=== PATIENT | male | born 1950 | race Caucasian/White ===

== ENCOUNTER 2016-11-22 14:22 | Inpatient (IN) | payer OTHER, MEDICARE ==
[~2016-11-22] VITALS: Ht 167.6 cm; Wt 74.5 kg
[2016-11-22 14:55] LABS: BASOPHIL 0.2 % (0-2); EOSINOPHIL 0.2 % (0-7); HCT 40.3 % (42.0-52.0); HGB 14.1 g/dl (13.2-18.0); LYMPHOCYTE 3.4 % (15-48); MCH 33.3 pg (25.0-31.0); MONOCYTE 6.7 % (0-12); MPV 9.2 fL (6.0-9.5); NEUTROPHIL 89.5 % (41-80); PLT 239 K/uL (150-400); RBC 4.24 M/uL (4.70-6.00); RDW 13.7 % (11.5-14.0); WBC 17.9 K/uL (4.0-10.5)
[2016-11-22 14:59] LABS: INR 1.07 (0.9-1.2); PROTHROMBIN TIME 13.5 SECONDS (11.7-14.0); PTT 33.7 SECONDS (23.2-31.4)
[2016-11-22 15:00] LABS: D-DIMER 1.69 ug/mLFEU (0.00-0.41)
[2016-11-22 15:08] LABS: MYOGLOBIN 291 ng/mL (26-65); TROPONIN T < 0.010 ng/mL
[2016-11-22 15:09] LABS: ALBUMIN 4.1 g/dL (3.4-4.8); BILIRUBIN - TOTAL 0.7 mg/dL (0.1-1.0); CREATININE 0.9 mg/dL (0.7-1.2); GLOBULIN (CALCULATION) 3.4 g/dL (2.2-4.2); MAGNESIUM 1.94 mg/dL (1.40-2.10); TOTAL PROTEIN 7.5 g/dL (6.4-8.3)
[2016-11-22 15:12] LABS: PRO-BNP 361 pg/mL (0-125)
[2016-11-22 15:14] LABS: CKMB 10.04 ng/mL (0.97-4.94)
[2016-11-22 20:55] LABS: TROPONIN T < 0.010 ng/mL
[2016-11-22 20:59] LABS: CKMB 12.65 ng/mL (0.97-4.94)
[2016-11-22 23:42] LABS: BILIRUBIN NEGATIVE (NEGATIVE); BLOOD 1+ Ery/uL (NEGATIVE); CLARITY CLEAR (CLEAR); COLOR YELLOW (YELLOW); GLUCOSE (U) NORMAL (NORMAL); KETONE (U) NEGATIVE (NEGATIVE); LEUKOCYTES NEGATIVE Leu/uL (NEGATIVE); NITRITE NEGATIVE (NEGATIVE); PROTEIN NEGATIVE (NEGATIVE); SPECIFIC GRAVITY <=1.005 (1.001-1.030); UROBILINOGEN 0.2 mg/dL (0.2-1.0); pH 5.5 (5.0-9.0)
[2016-11-22 23:52] LABS: URINARY WBC RARE
[2016-11-23 04:21] LABS: HCT 35.7 % (42.0-52.0); HGB 12.2 g/dl (13.2-18.0); MCH 33.2 pg (25.0-31.0); MCHC 34.2 g/dL (32.0-36.0); MCV 97.3 fL (78.0-100.0); MPV 9.1 fL (6.0-9.5); RBC 3.67 M/uL (4.70-6.00); RDW 14.1 % (11.5-14.0); WBC 12.8 K/uL (4.0-10.5)
[2016-11-23 04:40] LABS: CREATININE 0.8 mg/dL (0.7-1.2); POTASSIUM 4.6 mmol/L (3.5-5.1)
[2016-11-24 04:03] LABS: HCT 34.5 % (42.0-52.0); HGB 11.7 g/dl (13.2-18.0); MCH 33.1 pg (25.0-31.0); MCHC 33.9 g/dL (32.0-36.0); MCV 97.7 fL (78.0-100.0); MPV 8.7 fL (6.0-9.5); RBC 3.53 M/uL (4.70-6.00); RDW 14.2 % (11.5-14.0); WBC 13.1 K/uL (4.0-10.5)
[2016-11-24 04:30] LABS: CREATININE 0.8 mg/dL (0.7-1.2)
--- NOTE | 2016-11-24 11:49 | NUR ---
REPORT CALLED TO JOSE VERA AT THIS TIME.
[2016-11-26 04:56] LABS: HCT 36.3 % (42.0-52.0); HGB 12.5 g/dl (13.2-18.0); MCH 33.7 pg (25.0-31.0); MCHC 34.4 g/dL (32.0-36.0); MCV 97.8 fL (78.0-100.0); MPV 8.5 fL (6.0-9.5); RBC 3.71 M/uL (4.70-6.00); WBC 8.6 K/uL (4.0-10.5)
[2016-11-26 05:18] LABS: CREATININE 0.7 mg/dL (0.7-1.2); POTASSIUM 4.4 mmol/L (3.5-5.1)
--- NOTE | 2016-11-27 01:05 | NUR ---
FOLLOW UP BLOOD PRESSURE 165/72
[2016-11-27 05:04] LABS: HCT 37.9 % (42.0-52.0); HGB 13.1 g/dl (13.2-18.0); MCH 33.2 pg (25.0-31.0); MCHC 34.6 g/dL (32.0-36.0); MCV 96.2 fL (78.0-100.0); MPV 8.6 fL (6.0-9.5); RBC 3.94 M/uL (4.70-6.00); RDW 13.6 % (11.5-14.0); WBC 10.6 K/uL (4.0-10.5)
[2016-11-27 05:23] LABS: CREATININE 0.7 mg/dL (0.7-1.2)
[2016-11-28 05:47] LABS: HCT 39.6 % (42.0-52.0); HGB 13.6 g/dl (13.2-18.0); MCH 32.9 pg (25.0-31.0); MCHC 34.3 g/dL (32.0-36.0); MCV 95.7 fL (78.0-100.0); MPV 8.7 fL (6.0-9.5); RBC 4.14 M/uL (4.70-6.00); RDW 13.6 % (11.5-14.0); WBC 11.4 K/uL (4.0-10.5)
[2016-11-28 06:19] LABS: CREATININE 0.7 mg/dL (0.7-1.2); POTASSIUM 3.7 mmol/L (3.5-5.1)
[2016-11-29 05:41] LABS: HCT 40.9 % (42.0-52.0); HGB 14.1 g/dl (13.2-18.0); MCHC 34.5 g/dL (32.0-36.0); MCV 95.8 fL (78.0-100.0); MPV 8.7 fL (6.0-9.5); RBC 4.27 M/uL (4.70-6.00); RDW 13.7 % (11.5-14.0); WBC 10.9 K/uL (4.0-10.5)
[2016-11-29 06:01] LABS: CREATININE 0.7 mg/dL (0.7-1.2); POTASSIUM 3.5 mmol/L (3.5-5.1)
[2016-11-30] MEDS ORDERED: DUONEB 2.5-0.5M1 AMP NEB (14:41)
[2016-11-30] MEDS ORDERED: CERTAGEN1 EACH PO (14:42)
[2016-11-30] MEDS ORDERED: NEXIUM40 MG PO (14:42)
[2016-11-30] MEDS ORDERED: CRESTOR20 MG PO (14:42)
[2016-11-30] MEDS ORDERED: PRINIVIL10 MG PO (14:43)
[2016-11-30] MEDS ORDERED: ASPIRIN CHEWABL81 MG PO (14:43)
[2016-11-30] MEDS ORDERED: DIGITEK125 MCG PO (14:43)
[2016-11-30] MEDS ORDERED: TOPROL XL 25MG25 MG PO (14:44)
[2016-11-30] MEDS ORDERED: CEREFOLIN CAPL1 EACH PO (14:44)
[2016-11-30] MEDS ORDERED: WELLBUTRIN75 MG PO (14:44)
[2016-11-30] MEDS ORDERED: SINGULAIR10 MG PO (14:45)
[2016-11-30] MEDS ORDERED: SYNTHROID50 MCG PO (14:46)
[2016-11-30] MEDS ORDERED: CEFUROXIME500 MG PO (14:56)
[2017-01-30] MEDS ORDERED: OLANZAPINE-FLU1 EAC3 PO (14:47)
[2017-01-30] MEDS ORDERED: COMBIVENT RESPIM4 GM INH (14:48)
[2017-01-30] MEDS ORDERED: SYMBICORT 16010.2 GM INH (14:49)
[2017-02-05] MEDS ORDERED: CHLORDIAZEPOXID10 M1 PO (14:48)
[2017-02-05] MEDS ORDERED: PERFOROMIS20 MCG/2 M NEB (14:49)
[2017-02-05] MEDS ORDERED: PREDNISONE 20MG20 MG PO (14:56)
[2017-02-05] MEDS ORDERED: LACTINEX1 EACH PO (14:57)
== END 2016-11-30 16:15 | disposition home or self-care (01) | DRG 871 ==
LOC: FER 14:22 → FMS 18:00 → FICU 18:00 → FMS 11-24 12:06
PROVIDERS: Emergency Medicine; Internal Medicine; ADMIT Internal Medicine
DX: A41.9 Sepsis, unspecified organism (principal); J96.21 Acute and chronic respiratory failure with hypoxia; J14 Pneumonia due to Hemophilus influenzae; J15.5 Pneumonia due to Escherichia coli; J44.0 Chronic obstructive pulmonary disease with (acute) lower respiratory infection; F10.21 Alcohol dependence, in remission; D50.9 Iron deficiency anemia, unspecified; E03.9 Hypothyroidism, unspecified; J44.1 Chronic obstructive pulmonary disease with (acute) exacerbation; R65.20 Severe sepsis without septic shock; F17.210 Nicotine dependence, cigarettes, uncomplicated; F41.9 Anxiety disorder, unspecified; E78.5 Hyperlipidemia, unspecified; Y95 Nosocomial condition; Z79.899 Other long term (current) drug therapy; Z82.49 Family history of ischemic heart disease and other diseases of the circulatory system; Z79.82 Long term (current) use of aspirin
CPT/HCPCS: 36415; 36600; 71010; 71275; 80048; 80053; 80202; 81001; 82550; 82553; 82803; 82962; 83735; 83874; 83880; 84484; 85025; 85379; 85610; 85730; 87040; 87070; 87077; 87186; 87205; 87804; 87899; 93005; 94640; 94660; 94668; 97110; 97116; 97162; 97166; 97530; 97530-GP; 97535; J0456; J1956; J2270; J2405; J2543; J2930; Q9967

== ENCOUNTER 2021-07-18 13:19 | Inpatient (IN) | payer OTHER, MEDICARE ==
[~2021-07-18] VITALS: Ht 167.6 cm; Wt 61.4 kg
[~2021-07-18 13:19] MED LIST: ASPIRIN CHEWABL81 MG PO; ATARAX25 MG PO; AUGMENTIN250 MG PO; BEVESPI AEROS10.7 GM INH; BRILINTA90 MG PO; CARAFATE1 GM PO; CEFUROXIME500 MG PO; CEREFOLIN CAPL1 EACH PO; CERTAGEN1 EACH PO; CHLORDIAZEPOXID10 M1 PO; COLACE100 MG PO; COMBIVENT RESPIM4 GM INH; CRESTOR20 MG PO; DIGITEK125 MCG PO; DIGITEK250 MCG PO; DUONEB 2.5-0.5M1 AMP INH; DUONEB 2.5-0.5M1 AMP NEB; FLURAZEPAM HCL30 M1 PO; FOLIC ACID1 MG PO; IBUPROFEN800 MG PO; LACTINEX1 EACH PO; LIBRIUM10 MG PO; LIBRIUM5 MG PO; LOPRESSOR50 MG PO; LUNESTA3 MG PO; MAG-OXIDE 400M400 MG PO; NEXIUM40 MG PO; NITROQUIK SL0.4 MG SL; NORVASC5 MG PO; OLANZAPINE-FLU1 EAC3 PO; OXYCODONE-ACET1 EACH PO; PERFOROMIS20 MCG/2 M INH; PERFOROMIS20 MCG/2 M NEB; PREDNISONE 10MG10 MG PO; PREDNISONE 20MG20 MG PO; PREDNISONE5 MG PO; PRINIVIL10 MG PO; PROBIOTIC1 EACH PO; PROTONIX 40MG T40 MG PO; PULMICORT0.5 MG/2 M INH; SINGULAIR10 MG PO; SYMBICORT 16010.2 GM INH; SYMBICORT 80-10.2 GM INH; SYNTHROID50 MCG PO; THORAZINE10 MG PO; TOPROL XL 25MG25 MG PO; TRAZODONE 100M100 MG PO; VENTOLIN HFA IN18 GM INH; VENTOLIN HFA18 GM INH; VITAMIN B-121000 MC1 PO; WELCHOL625 MG PO; WELLBUTRIN75 MG PO; ZESTRIL5 MG PO; ZOFRAN8 MG PO; ZPAK PO
[2021-07-18 14:57] LABS: BASOPHIL 0.4 % (0-2); EOSINOPHIL 0 % (0-7); HCT 37.4 % (42.0-52.0); LYMPHOCYTE 6.4 % (15-48); MCH 32.9 pg (25.0-31.0); MCHC 34.8 g/dL (32.0-36.0); MCV 94.7 fL (78.0-100.0); MPV 8.5 fL (6.0-9.5); NEUTROPHIL 77.9 % (41-80); NRBC 0; PLT 147 K/uL (150-400); RBC 3.95 M/uL (4.70-6.00); RDW 11.9 % (11.5-14.0); WBC 9.4 K/uL (4.0-10.5)
[2021-07-18 15:25] LABS: ALBUMIN 3.9 g/dL (3.4-5.0); BILIRUBIN - TOTAL 0.2 mg/dL (0.2-1.0); BUN/CREAT RATIO (CALC) 11.1 RATIO; CREATININE 0.81 mg/dL (0.67-1.17); GLOBULIN (CALCULATION) 2.6 g/dL; POTASSIUM 4.2 mmol/L (3.5-5.1); TOTAL PROTEIN 6.5 g/dL (6.4-8.2)
[2021-07-18 15:33] LABS: INFLUENZA A NAA NEGATIVE (NEGATIVE)
[2021-07-18 15:42] LABS: CORONAVIRUS 2019 SARS-COV-2 POSITIVE (NEGATIVE)
[2021-07-18 15:59] LABS: INR 1.01 (0.9-1.2); PROTHROMBIN TIME 12.7 SECONDS (11.8-13.4); PTT 32.2 SECONDS (24.4-34.7)
[2021-07-19 05:59] LABS: BASOPHIL 0.1 % (0-2); EOSINOPHIL 0 % (0-7); HCT 36.4 % (42.0-52.0); HGB 12.7 g/dl (13.2-18.0); LYMPHOCYTE 9.9 % (15-48); MCH 32.6 pg (25.0-31.0); MCHC 34.9 g/dL (32.0-36.0); MCV 93.3 fL (78.0-100.0); MONOCYTE 18.2 % (0-12); MPV 8.6 fL (6.0-9.5); NEUTROPHIL 71.5 % (41-80); NRBC 0; PLT 153 K/uL (150-400); RDW 12.1 % (11.5-14.0); WBC 7.1 K/uL (4.0-10.5)
[2021-07-19 06:24] LABS: BUN/CREAT RATIO (CALC) 17.4 RATIO; CREATININE 0.69 mg/dL (0.67-1.17); POTASSIUM 4.2 mmol/L (3.5-5.1)
[2021-07-19] MEDS ORDERED: PROTONIX 40MG T40 MG PO (06:44)
[2021-07-19] MEDS ORDERED: SINGULAIR10 MG PO (06:46)
[2021-07-20 05:52] LABS: BASOPHIL 0.2 % (0-2); EOSINOPHIL 0 % (0-7); HCT 36.2 % (42.0-52.0); HGB 12.5 g/dl (13.2-18.0); LYMPHOCYTE 16.3 % (15-48); MCH 32.5 pg (25.0-31.0); MCHC 34.5 g/dL (32.0-36.0); MONOCYTE 15.3 % (0-12); MPV 8.7 fL (6.0-9.5); NEUTROPHIL 67.9 % (41-80); NRBC 0; PLT 153 K/uL (150-400); RBC 3.85 M/uL (4.70-6.00); RDW 12.4 % (11.5-14.0); WBC 6.2 K/uL (4.0-10.5)
[2021-07-20 06:24] LABS: BUN/CREAT RATIO (CALC) 17.6 RATIO; CREATININE 0.68 mg/dL (0.67-1.17); POTASSIUM 4.2 mmol/L (3.5-5.1)
[2021-07-22 05:59] LABS: BASOPHIL 0 % (0-2); EOSINOPHIL 0.1 % (0-7); LYMPHOCYTE 23.6 % (15-48); MCH 32.7 pg (25.0-31.0); MCV 93.5 fL (78.0-100.0); MONOCYTE 14.7 % (0-12); MPV 8.9 fL (6.0-9.5); NEUTROPHIL 61.5 % (41-80); NRBC 0; PLT 178 K/uL (150-400); RBC 4.28 M/uL (4.70-6.00); WBC 6.7 K/uL (4.0-10.5)
[2021-07-22 07:13] LABS: BUN/CREAT RATIO (CALC) 22.4 RATIO; CREATININE 0.58 mg/dL (0.67-1.17); POTASSIUM 3.7 mmol/L (3.5-5.1)
[2021-07-23 05:34] LABS: BASOPHIL 0.1 % (0-2); EOSINOPHIL 0 % (0-7); HCT 38.7 % (42.0-52.0); HGB 13.3 g/dl (13.2-18.0); LYMPHOCYTE 14.1 % (15-48); MCH 32.7 pg (25.0-31.0); MCHC 34.4 g/dL (32.0-36.0); MCV 95.1 fL (78.0-100.0); MONOCYTE 11.3 % (0-12); MPV 9.1 fL (6.0-9.5); NEUTROPHIL 74.2 % (41-80); NRBC 0; PLT 199 K/uL (150-400); RBC 4.07 M/uL (4.70-6.00); RDW 11.9 % (11.5-14.0); WBC 7.8 K/uL (4.0-10.5)
[2021-07-23 06:13] LABS: BUN 15 mg/dL (7-18); BUN/CREAT RATIO (CALC) 25.4 RATIO; CHLORIDE 100 mmol/L (98-107); CO2 (BICARBONATE) 30 mmol/L (21-32); CREATININE 0.59 mg/dL (0.67-1.17); GLUCOSE 102 mg/dL (74-106); POTASSIUM 3.6 mmol/L (3.5-5.1)
[2021-07-23 06:14] LABS: C-REACTIVE PROTEIN < 0.20 mg/dL (<=0.90)
--- NOTE | 2021-07-23 10:01 | NUR ---
07/23/21 Per telephone conversation with Ms. Diallo. Mr. Diallo lives at home with his spouse. He uses 02 at 2 L at night from [facility]. He has portable 02 tanks. Mr. Diallo also has a rw, 3in1, and s. seat which he does not use. He was independent in the home and community prior to admission.
--- NOTE | 2021-07-23 12:04 | NUR ---
07/23/21 Mr. Diallo will be discharged today on 2L 02 continuously. [facility], [facility] has been notified of the order to increase the home 02. A report was given to GREGORIO Vasquez RN.
[2021-07-23] MEDS ORDERED: AZITHROMYCIN250 MG PO (16:33)
[2021-07-23] MEDS ORDERED: CEFDINIR300 MG PO (16:33)
[2021-07-23] MEDS ORDERED: LOPRESSOR25 MG PO (16:33)
[2021-07-23] MEDS ORDERED: MEDROL 4MG DOSEP4 MG PO (16:33)
[2021-07-23] MEDS ORDERED: ELIQUIS5 MG PO (16:33)
== END 2021-07-23 17:15 | disposition home or self-care (01) | DRG 177 ==
LOC: FER 13:19 → FTCU 18:02
PROVIDERS: Internal Medicine; Internal Medicine Cardiovascular Disease; Nurse Practitioner; Physician Assistant; ADMIT Internal Medicine
PROC: 8E0ZXY6 Isolation (ICD-10-PCS; 2021-07-18)
PROC: XW033E5 Introduction of Remdesivir Anti-infective into Peripheral Vein, Percutaneous Approach, New Technology Group 5 (ICD-10-PCS; principal; 2021-07-19)
DX: U07.1 COVID-19 (principal); J12.82 Pneumonia due to coronavirus disease 2019; J96.21 Acute and chronic respiratory failure with hypoxia; I21.A1 Myocardial infarction type 2; J15.9 Unspecified bacterial pneumonia; J44.0 Chronic obstructive pulmonary disease with (acute) lower respiratory infection; I48.20 Chronic atrial fibrillation, unspecified; I42.0 Dilated cardiomyopathy; I50.22 Chronic systolic (congestive) heart failure; N17.9 Acute kidney failure, unspecified; J44.1 Chronic obstructive pulmonary disease with (acute) exacerbation; R91.8 Other nonspecific abnormal finding of lung field; I25.5 Ischemic cardiomyopathy; E03.9 Hypothyroidism, unspecified; I11.0 Hypertensive heart disease with heart failure; G47.33 Obstructive sleep apnea (adult) (pediatric); E78.5 Hyperlipidemia, unspecified; I25.10 Atherosclerotic heart disease of native coronary artery without angina pectoris; D50.9 Iron deficiency anemia, unspecified; F41.9 Anxiety disorder, unspecified; G47.00 Insomnia, unspecified; K21.9 Gastro-esophageal reflux disease without esophagitis; M19.90 Unspecified osteoarthritis, unspecified site; Z98.890 Other specified postprocedural states; Z99.81 Dependence on supplemental oxygen; Z95.5 Presence of coronary angioplasty implant and graft; Z95.820 Peripheral vascular angioplasty status with implants and grafts; Z79.899 Other long term (current) drug therapy; Z95.810 Presence of automatic (implantable) cardiac defibrillator
CPT/HCPCS: 36415; 71045; 71275; 80048; 80053; 82728; 83880; 84145; 84484; 85025; 85610; 85730; 86140; 87070; 87205; 93005; 94640; 94664; 94667; 94668; 94762; C9399; J0456; J0696; J1650; J2405; J7040; J7050; J7512; Q9967; U0002

== ENCOUNTER 2021-11-19 23:46 | Inpatient (IN) | payer OTHER, MEDICARE ==
[~2021-11-19] VITALS: Ht 167.6 cm; Wt 61.9 kg
[~2021-11-19 23:46] MED LIST changes: +AZITHROMYCIN250 MG PO; +CEFDINIR300 MG PO; +ELIQUIS5 MG PO; +LOPRESSOR25 MG PO; +MEDROL 4MG DOSEP4 MG PO
[2021-11-20 00:42] LABS: BASOPHIL 0.6 % (0-2); EOSINOPHIL 1.7 % (0-7); HCT 40.6 % (42.0-52.0); HGB 14.2 g/dl (13.2-18.0); LYMPHOCYTE 8.9 % (15-48); MCH 31.9 pg (25.0-31.0); MCV 91.2 fL (78.0-100.0); MONOCYTE 9.2 % (0-12); MPV 8.5 fL (6.0-9.5); NEUTROPHIL 79.1 % (41-80); NRBC 0; PLT 356 K/uL (150-400); RBC 4.45 M/uL (4.70-6.00); RDW 11.9 % (11.5-14.0); WBC 11.5 K/uL (4.0-10.5)
[2021-11-20 01:00] LABS: ALBUMIN 4.3 g/dL (3.4-5.0); BILIRUBIN - TOTAL 0.3 mg/dL (0.2-1.0); BUN/CREAT RATIO (CALC) 17.6 RATIO; CREATININE 0.51 mg/dL (0.67-1.17); GLOBULIN (CALCULATION) 3.3 g/dL; POTASSIUM 4.1 mmol/L (3.5-5.1); TOTAL PROTEIN 7.6 g/dL (6.4-8.2)
[2021-11-20 01:07] LABS: LACTIC ACID 1.1 mmol/L (0.4-1.9)
[2021-11-20] MEDS ORDERED: LIBRIUM25 MG PO (05:21)
[2021-11-20] MEDS ORDERED: TRAZODONE 100M100 MG PO (05:25)
[2021-11-20] MEDS ORDERED: ZESTRIL5 MG PO (05:27)
[2021-11-20] MEDS ORDERED: PERCOCET 10-321 EACH PO (05:28)
[2021-11-20] MEDS ORDERED: CYANOCOBAL1000 MCG/2 IM (05:29)
[2021-11-20] MEDS ORDERED: DUONEB 2.5-0.5M1 AMP INH (05:31)
[2021-11-20 07:53] LABS: CREATININE 0.6 mg/dL (0.67-1.17); POTASSIUM 4.4 mmol/L (3.5-5.1)
[2021-11-20 12:37] LABS: BUN/CREAT RATIO (CALC) 27.9 RATIO; CREATININE 0.68 mg/dL (0.67-1.17); POTASSIUM 4.4 mmol/L (3.5-5.1)
[2021-11-20 15:27] LABS: C-REACTIVE PROTEIN 0.5 mg/dL (<=0.90)
[2021-11-20 17:57] LABS: BUN/CREAT RATIO (CALC) 29.9 RATIO; CREATININE 0.67 mg/dL (0.67-1.17); POTASSIUM 4.2 mmol/L (3.5-5.1)
[2021-11-21 00:41] LABS: BUN/CREAT RATIO (CALC) 27.9 RATIO; CREATININE 0.68 mg/dL (0.67-1.17); POTASSIUM 4.4 mmol/L (3.5-5.1)
--- NOTE | 2021-11-21 05:42 | NUR ---
ORTHOSTATIC B/P & P:LAYING B/P 119/56 P 77, SITTING B/P 123/63 P 85, STANDING B/P 121/57 P 87.
[2021-11-21 06:52] LABS: BASOPHIL 0.1 % (0-2); EOSINOPHIL 0.1 % (0-7); HCT 35.5 % (42.0-52.0); HGB 11.9 g/dl (13.2-18.0); MCH 31.3 pg (25.0-31.0); MCHC 33.5 g/dL (32.0-36.0); MCV 93.4 fL (78.0-100.0); MPV 8.4 fL (6.0-9.5); NEUTROPHIL 82.2 % (41-80); NRBC 0; PLT 294 K/uL (150-400); RDW 12.5 % (11.5-14.0); WBC 17.1 K/uL (4.0-10.5)
[2021-11-21 07:29] LABS: CREATININE 0.74 mg/dL (0.67-1.17); POTASSIUM 4.3 mmol/L (3.5-5.1)
--- NOTE | 2021-11-21 11:55 | NUR ---
11/21 Mr. Diallo lives at home with his spouse. He has 02 at 2.5 L from [facility] / now [facility], 3in1, s. chair and pulse-ox. [facility] will deliver a portable tank. Mr. Diallo declined services.
--- NOTE | 2021-11-21 23:56 | NUR ---
PAD REPLACED FOR CARDIAC MONITORING.
--- NOTE | 2021-11-22 02:46 | NUR ---
STAT EKG REVIEWED BY AUDIO VISUAL AIDE, NO NEW ORDER RECIEVED AT THIS TIMW. NEW ORDER RECIEVED FOR PATIENT REQUEST R/T C/O CONSTIPATION.
[2021-11-22 06:29] LABS: BASOPHIL 0.3 % (0-2); EOSINOPHIL 0.3 % (0-7); HCT 38.4 % (42.0-52.0); HGB 13.2 g/dl (13.2-18.0); MCH 31.9 pg (25.0-31.0); MCHC 34.4 g/dL (32.0-36.0); MCV 92.8 fL (78.0-100.0); MONOCYTE 11.5 % (0-12); MPV 8.3 fL (6.0-9.5); NEUTROPHIL 75.4 % (41-80); NRBC 0; PLT 316 K/uL (150-400); RBC 4.14 M/uL (4.70-6.00); RDW 12.3 % (11.5-14.0); WBC 14.4 K/uL (4.0-10.5)
[2021-11-22 07:12] LABS: CREATININE 0.6 mg/dL (0.67-1.17); POTASSIUM 3.8 mmol/L (3.5-5.1)
[2021-11-22 12:27] LABS: INR 1.22 (0.9-1.2); PROTHROMBIN TIME 14.8 SECONDS (11.8-13.4); PTT 29.4 SECONDS (24.4-34.7)
[2021-11-22 12:47] LABS: LACTIC ACID 1.5 mmol/L (0.4-1.9)
[2021-11-22 16:40] LABS: BASOPHIL 0.2 % (0-2); EOSINOPHIL 0 % (0-7); HCT 42.4 % (42.0-52.0); HGB 14.3 g/dl (13.2-18.0); MCH 31.8 pg (25.0-31.0); MCHC 33.7 g/dL (32.0-36.0); MCV 94.2 fL (78.0-100.0); MONOCYTE 3.9 % (0-12); MPV 8.4 fL (6.0-9.5); NRBC 0; PLT 318 K/uL (150-400); RDW 12.5 % (11.5-14.0)
[2021-11-22 16:44] LABS: NEUTROPHIL 93.9 % (41-80)
[2021-11-22 16:45] LABS: WBC 25.6 K/uL (4.0-10.5)
[2021-11-22 16:49] LABS: BILIRUBIN NEGATIVE (NEGATIVE); BLOOD TRACE-INTACT Ery/uL (NEGATIVE); CLARITY CLEAR (CLEAR); COLOR YELLOW (YELLOW); GLUCOSE (U) NORMAL (NORMAL); LEUKOCYTES 2+ Leu/uL (NEGATIVE); NITRITE NEGATIVE (NEGATIVE); PROTEIN 2+ mg/dL (NEGATIVE); SPECIFIC GRAVITY 1.015 (1.001-1.030); UROBILINOGEN 0.2 mg/dL (0.2-1.0)
[2021-11-22 17:00] LABS: BACTERIA 1+; MUCOUS MODERATE
[2021-11-23 03:47] LABS: BASOPHIL 0.2 % (0-2); EOSINOPHIL 0.1 % (0-7); HGB 12.7 g/dl (13.2-18.0); LYMPHOCYTE 6.6 % (15-48); MCH 31.9 pg (25.0-31.0); MCHC 34.3 g/dL (32.0-36.0); MONOCYTE 9.3 % (0-12); MPV 8.5 fL (6.0-9.5); NEUTROPHIL 83.2 % (41-80); NRBC 0; PLT 278 K/uL (150-400); RBC 3.98 M/uL (4.70-6.00); RDW 12.3 % (11.5-14.0); WBC 19.2 K/uL (4.0-10.5)
[2021-11-23 03:59] LABS: INR 1.15 (0.9-1.2); PROTHROMBIN TIME 14.1 SECONDS (11.8-13.4); PTT 29.7 SECONDS (24.4-34.7)
[2021-11-23 04:07] LABS: BUN/CREAT RATIO (CALC) 22.5 RATIO; CREATININE 0.89 mg/dL (0.67-1.17); POTASSIUM 4.3 mmol/L (3.5-5.1)
[2021-11-24 05:59] LABS: BASOPHIL 0.2 % (0-2); EOSINOPHIL 0.4 % (0-7); HCT 35.8 % (42.0-52.0); LYMPHOCYTE 8.1 % (15-48); MCH 31.6 pg (25.0-31.0); MCHC 33.5 g/dL (32.0-36.0); MCV 94.2 fL (78.0-100.0); MONOCYTE 9.4 % (0-12); MPV 8.6 fL (6.0-9.5); NEUTROPHIL 81.3 % (41-80); NRBC 0; PLT 272 K/uL (150-400); RDW 12.4 % (11.5-14.0); WBC 16.1 K/uL (4.0-10.5)
[2021-11-24 06:13] LABS: BUN/CREAT RATIO (CALC) 15.6 RATIO; CREATININE 0.64 mg/dL (0.67-1.17); POTASSIUM 3.7 mmol/L (3.5-5.1)
--- NOTE | 2021-11-24 07:13 | NUR ---
TREV 11/23 @ 1926, SCORE 18, GAVE 1MG ATIVAN IV (ONE TIME DOSE) 11/23 @ 2025, SCORE 3 (NO MEDICATION ADMINISTERED) 11/24 @ 0036, SCORE 12 (GAVE 2MG ATIVAN IV) 11/24 @ 0236, SCORE 1 (NO MEDICATION GIVEN) 11/24 @0436, SCORE 17 (GAVE 2MG ATIVAN IV) 11/24 @ 0636, SCORE 6 (NO MEDICATION ADMINISTERED)
[2021-11-25 05:55] LABS: BASOPHIL 0.2 % (0-2); EOSINOPHIL 0.5 % (0-7); HCT 36.7 % (42.0-52.0); HGB 12.5 g/dl (13.2-18.0); MCHC 34.1 g/dL (32.0-36.0); MCV 93.9 fL (78.0-100.0); MONOCYTE 9.1 % (0-12); MPV 8.6 fL (6.0-9.5); NEUTROPHIL 79.5 % (41-80); NRBC 0; PLT 273 K/uL (150-400); RBC 3.91 M/uL (4.70-6.00); RDW 12.3 % (11.5-14.0); WBC 13.3 K/uL (4.0-10.5)
[2021-11-25 06:26] LABS: BUN/CREAT RATIO (CALC) 13.3 RATIO; CREATININE 0.6 mg/dL (0.67-1.17); POTASSIUM 3.8 mmol/L (3.5-5.1)
[2021-11-25] MEDS ORDERED: AUGMENTIN 500-1 EACH PO (09:33)
[2021-11-25] MEDS ORDERED: PERCOCET 10-321 EACH PO (09:33)
[2021-11-25] MEDS ORDERED: MUCINEX 600MG600 MG PO (09:33)
[2021-11-25] MEDS ORDERED: PROTONIX 40MG T40 MG PO (09:33)
[2021-11-25] MEDS ORDERED: NARCAN4 MG (09:35)
[2021-11-25] MEDS ORDERED: ELIQUIS5 MG PO (11:11)
--- NOTE | 2021-11-25 14:09 | NUR ---
11/25 Ms. Diallo continued to decline services. He is not interested in AA meetings. He declined to wait for [facility] to bring a portable 02 tank.
[2021-11-26 22:10] LABS: ADENOVIRUS F 40/41 Not Detected (Not Detected); ASTROVIRUS Not Detected (Not Detected); C DIFFICILE TOXIN A/B Not Detected (Not Detected); CAMPYLOBACTER Not Detected (Not Detected); CRYPTOSPORIDIUM Not Detected (Not Detected); CYCLOSPORA CAYETANENSIS Not Detected (Not Detected); ENTAMOEBA HISTOLYTICA Not Detected (Not Detected); ENTEROAGGREGATIVE E COLI Not Detected (Not Detected); ENTEROPATHOGENIC E COLI Not Detected (Not Detected); ENTEROTOXIGENIC E COLI Not Detected (Not Detected); GIARDIA LAMBLIA Not Detected (Not Detected); NOROVIRUS GI/GII Not Detected (Not Detected); PLESIOMONAS SHIGELLOIDES Not Detected (Not Detected); ROTAVIRUS A Not Detected (Not Detected); SALMONELLA Not Detected (Not Detected); SAPOVIRUS Not Detected (Not Detected); SHIGA-TOXIN-PRODUCING E COLI Not Detected (Not Detected); SHIGELLA/ENTEROINVASIVE E COLI Not Detected (Not Detected); VIBRIO Not Detected (Not Detected); VIBRIO CHOLERAE Not Detected (Not Detected); YERSINIA ENTEROCOLITICA Not Detected (Not Detected)
== END 2021-11-25 13:00 | disposition home or self-care (01) | DRG 640 ==
LOC: FER 23:46 → FMS 11-20 03:20 → FTCU 11-22 10:38
PROVIDERS: Emergency Medicine; Family Medicine; Nurse Practitioner Acute Care; Student in an Organized Health Care Education/Training Program; ADMIT Internal Medicine
DX: E87.1 Hypo-osmolality and hyponatremia (principal); J96.21 Acute and chronic respiratory failure with hypoxia; A41.9 Sepsis, unspecified organism; J44.1 Chronic obstructive pulmonary disease with (acute) exacerbation; F10.139 Alcohol abuse with withdrawal, unspecified; I50.32 Chronic diastolic (congestive) heart failure; I42.0 Dilated cardiomyopathy; K92.1 Melena; I48.0 Paroxysmal atrial fibrillation; F41.1 Generalized anxiety disorder; K52.9 Noninfective gastroenteritis and colitis, unspecified; R73.9 Hyperglycemia, unspecified; E03.9 Hypothyroidism, unspecified; I11.0 Hypertensive heart disease with heart failure; E78.5 Hyperlipidemia, unspecified; I95.1 Orthostatic hypotension; I25.10 Atherosclerotic heart disease of native coronary artery without angina pectoris; G47.33 Obstructive sleep apnea (adult) (pediatric); K21.9 Gastro-esophageal reflux disease without esophagitis; K64.8 Other hemorrhoids; G47.00 Insomnia, unspecified; D50.9 Iron deficiency anemia, unspecified; Z90.49 Acquired absence of other specified parts of digestive tract; Z79.899 Other long term (current) drug therapy; Z98.890 Other specified postprocedural states; Z87.891 Personal history of nicotine dependence; Z79.01 Long term (current) use of anticoagulants; Z99.81 Dependence on supplemental oxygen; Z95.5 Presence of coronary angioplasty implant and graft; Z95.828 Presence of other vascular implants and grafts; Z95.0 Presence of cardiac pacemaker; Z86.16 Personal history of COVID-19
CPT/HCPCS: 36415; 70450; 71045; 80048; 80053; 81001; 82962; 83036; 83605; 83615; 83690; 83880; 83935; 84145; 84300; 84443; 84484; 85025; 85610; 85730; 86140; 86850; 86900; 86901; 87040; 87449; 93005; 94010; 94640; 94664; 94667; 94668; 94760; 94762; 97162; 97166; 97530-GP; 97535; C9113; G0378; J0692; J0696; J0780; J1885; J2060; J2270; J2405; J2543; J2930; J3475; J7030; J7050; J7512; Q9967

== ENCOUNTER → 2022-02-02 | Day surgery (SDC) | payer OTHER, MEDICARE ==
[~2022-02-02] VITALS: Ht 167.6 cm; Wt 61.4 kg
[~2022-02-02] MED LIST changes: +AUGMENTIN 500-1 EACH PO; +CYANOCOBAL1000 MCG/2 IM; +LIBRIUM25 MG PO; +MUCINEX 600MG600 MG PO; +NARCAN4 MG; +PERCOCET 10-321 EACH PO
[2022-02-02 08:13] LABS: HCT 37.8 % (42.0-52.0); HGB 12.9 g/dl (13.2-18.0); MCH 31.2 pg (25.0-31.0); MCHC 34.1 g/dL (32.0-36.0); MCV 91.3 fL (78.0-100.0); MPV 8.1 fL (6.0-9.5); RBC 4.14 M/uL (4.70-6.00); WBC 6.7 K/uL (4.0-10.5)
[2022-02-02 08:52] LABS: ALBUMIN 3.5 g/dL (3.4-5.0); BILIRUBIN - TOTAL 0.2 mg/dL (0.2-1.0); BUN/CREAT RATIO (CALC) 13.6 RATIO; CREATININE 0.66 mg/dL (0.67-1.17); GLOBULIN (CALCULATION) 2.8 g/dL; POTASSIUM 3.9 mmol/L (3.5-5.1); TOTAL PROTEIN 6.3 g/dL (6.4-8.2)
== END | disposition home or self-care (01) ==
LOC: FAS 12-02 09:00
PROVIDERS: Surgery
DX: K29.50 Unspecified chronic gastritis without bleeding (principal); K22.2 Esophageal obstruction; K31.1 Adult hypertrophic pyloric stenosis; L57.0 Actinic keratosis; Z79.82 Long term (current) use of aspirin; Z87.891 Personal history of nicotine dependence
CPT/HCPCS: 36415; 80053; C1726; J2405; J2704; J7120